=== PATIENT | male | born 1950 | race Caucasian/White ===

== ENCOUNTER 2017-11-03 23:09 | Inpatient (IN) | payer OTHER, MEDICARE ==
[2017-11-04] MEDS: KETOROLAC 15 MG INJ IV (02:19)
[2017-11-04] MEDS: ONDANSETRON 4 MG INJ IV (02:19)
[2017-11-04] MEDS: FAMOTIDINE 20 MG TAB PO (02:19)
[2017-11-04] MEDS: LIDOCAINE/MYLANTA 40 ML BTL PO (02:19)
[2017-11-04] MEDS: BELLADONNA/PHENOBARBITAL TAB PO (02:20)
[2017-11-04] MEDS: SOD CHLORIDE 0.9% 1,000 ML IV ×4 (02:20→18:48)
[2017-11-04 02:30] LABS: ADD MAN DIFF? NO
[2017-11-04 02:34] LABS: BASOPHIL # 0.1 10^3/ul (0.0-0.1); BASOPHILS % 0.3 % (0.0-2.0); HEMOGLOBIN 13.9 g/dl (14.0-18.0); LYMPHOCYTES # 0.7 10^3/ul (0.8-2.9); LYMPHOCYTES % 3.7 % (15.0-51.0); MEAN CORPUSCULAR HEMOGLOBIN 30.8 pg (29.0-33.0); MEAN CORPUSCULAR HGB CONC 34.8 g/dl (32.0-37.0); MEAN CORPUSCULAR VOLUME 88.7 fl (82.0-101.0); MEAN PLATELET VOLUME 10.9 fl (7.4-10.4); MONOCYTE # 0.6 10^3/ul (0.3-0.9); MONOCYTES % 3.4 % (0.0-11.0); NEUTROPHIL # 16.7 10^3/ul (1.6-7.5); NEUTROPHILS % 91.9 % (39.0-77.0); PLATELET COUNT 292 10^3/UL (140-415); RED BLOOD COUNT 4.51 10^6/ul (4.70-6.10); RED CELL DISTRIBUTION WIDTH 13.4 % (11.5-14.5)
[2017-11-04 02:34] LABS: WHITE BLOOD COUNT 18.2 10^3/ul (4.8-10.8)
[2017-11-04 02:52] LABS: ALANINE AMINOTRANSFERASE 38 IU/L (13-69); ALBUMIN 4.7 g/dl (3.3-4.9); ALBUMIN/GLOBULIN RATIO 1.46; ALKALINE PHOSPHATASE 105 IU/L (42-121); ANION GAP 20 (8-16); ASPARTATE AMINO TRANSFERASE 21 IU/L (15-46); BILIRUBIN,INDIRECT 0.1 mg/dl (0-1.1); BILIRUBIN,TOTAL 0.1 mg/dl (0.2-1.3); BLOOD UREA NITROGEN 20 mg/dl (7-20); CALCIUM 9.6 mg/dl (8.4-10.2); CARBON DIOXIDE 27 mmol/L (21-31); CHLORIDE 100 mmol/L (97-110); CREATININE 1.25 mg/dl (0.61-1.24); GLUCOSE 193 mg/dl (70-220); LIPASE 71 U/L (23-300); POTASSIUM 3.8 mmol/L (3.5-5.1); SODIUM 143 mmol/L (135-144); TOTAL PROTEIN 7.9 g/dl (6.1-8.1)
[2017-11-04 03:02] LABS: INR 0.93; PROTIME 12.5 Sec (11.9-14.9)
[2017-11-04 03:04] LABS: TROPONIN-I < 0.012 ng/ml (0.00-0.12)
[2017-11-04] MEDS: PIPER-TAZO 3.375 GM IV (PMX) 100 ML IVPB ×3 (04:27→18:48)
[2017-11-04] MEDS ORDERED: ACETAMINOPHEN 325 MG TAB ×2 (07:09→18:49)
[2017-11-04] MEDS: ACETAMINOPHEN 325 MG TAB PO ×2 (07:39→09:57)
[2017-11-04] MEDS ORDERED: MAGNESIUM HYDROXIDE 30ML CUP PO (09:00)
[2017-11-04] MEDS ORDERED: BISACODYL 10 MG SUPP PR (09:00)
[2017-11-04] MEDS ORDERED: DOCUSATE SODIUM 100 MG CAP PO (09:00)
[2017-11-04] MEDS ORDERED: ONDANSETRON 4 MG INJ IV (09:00)
[2017-11-04] MEDS: D5W-0.45 NACL + KCL 20 MEQ 1,000 ML IV (09:43)
[2017-11-04] MEDS ORDERED: GLUCAGON 1 MG INJ IM (11:30)
[2017-11-04] MEDS ORDERED: GLUCOSE GEL 15 GRAM TUBE PO ×2 (11:30)
[2017-11-04] MEDS ORDERED: DEXTROSE 50% 50 ML SYRINGE IV ×2 (11:30)
[2017-11-04] MEDS ORDERED: GLUCOSE GEL 15 GRAM TUBE BUCCAL (11:30)
[2017-11-04] MEDS: INSULIN ASPART [NOVOLOG] 3 ML PEN SC ×4 (13:09→21:00)
[2017-11-04 13:44] LABS: LACTIC ACID 3.5 mmol/L (0.5-2.0)
[2017-11-04] MEDS: morphine 2 MG INJ IV (17:54)
[2017-11-04] MEDS ORDERED: HYDROmorphONE 1 MG/ML SYG IV (18:00)
[2017-11-04] MEDS ORDERED: PIPER-TAZO 3.375 GM IV (PMX) 50 ML IVPB (18:00)
[2017-11-04] MEDS ORDERED: SOD CHLORIDE 0.9% IV (18:00)
[2017-11-04] MEDS ORDERED: SOD CHLORIDE 0.9% 500 ML IV (18:02)
[2017-11-04] MEDS ORDERED: ALBUTEROL/IPRATROPIUM (NEB) 3 ML AMP HHN (18:30)
[2017-11-04] MEDS ORDERED: POTASSIUM CHLORIDE 50 ML IVPB (18:30)
[2017-11-04] MEDS ORDERED: ZOLPIDEM 5 MG TAB PO (18:30)
[2017-11-04] MEDS ORDERED: ACETAMINOPHEN 325 MG TAB PO (19:00)
[2017-11-04 19:52] LABS: LACTIC ACID 1.9 mmol/L (0.5-2.0)
[2017-11-04] MEDS: metroNIDAZOLE 500 MG/NS (PMX) 100 ML IVPB (20:31)
[2017-11-04] MEDS ORDERED: LORAZEPAM 2 MG INJ IV (21:00)
[2017-11-04] MEDS ORDERED: LOSARTAN 50 MG TAB PO (21:00)
[2017-11-04] MEDS ORDERED: METOPROLOL 100 MG TAB PO (21:00)
[2017-11-04] MEDS: NORTRIPTYLINE 25 MG CAP PO (21:12)
[2017-11-04] MEDS: ATORVASTATIN 20 MG TAB PO (21:12)
[2017-11-05] MEDS: PIPER-TAZO 3.375 GM IV (PMX) 100 ML IVPB ×3 (00:15→11:26)
[2017-11-05] MEDS: metroNIDAZOLE 500 MG/NS (PMX) 100 ML IVPB ×4 (05:01→22:46)
[2017-11-05 05:58] LABS: ADD MAN DIFF? NO
[2017-11-05 06:00] LABS: ABNORMAL IP MESSAGE 1; BASOPHIL # 0.1 10^3/ul (0.0-0.1); BASOPHILS % 0.3 % (0.0-2.0); HEMATOCRIT 38.6 % (42.0-52.0); HEMOGLOBIN 13.2 g/dl (14.0-18.0); LYMPHOCYTES # 0.8 10^3/ul (0.8-2.9); LYMPHOCYTES % 3.5 % (15.0-51.0); MEAN CORPUSCULAR HEMOGLOBIN 30.7 pg (29.0-33.0); MEAN CORPUSCULAR HGB CONC 34.2 g/dl (32.0-37.0); MEAN CORPUSCULAR VOLUME 89.8 fl (82.0-101.0); MEAN PLATELET VOLUME 10.9 fl (7.4-10.4); MONOCYTE # 0.6 10^3/ul (0.3-0.9); MONOCYTES % 2.8 % (0.0-11.0); PLATELET COUNT 191 10^3/UL (140-415); POSITIVE DIFF @See below; RED CELL DISTRIBUTION WIDTH 14.1 % (11.5-14.5)
[2017-11-05 06:00] LABS: WHITE BLOOD COUNT 22.7 10^3/ul (4.8-10.8)
[2017-11-05] MEDS: PANTOPRAZOLE 40 MG INJ IV (06:12)
[2017-11-05 06:17] LABS: NEUTROPHILS % 92.4 % (39.0-77.0)
[2017-11-05 06:35] LABS: ALANINE AMINOTRANSFERASE 54 IU/L (13-69); ALBUMIN 3.5 g/dl (3.3-4.9); ALBUMIN/GLOBULIN RATIO 1.12; ALKALINE PHOSPHATASE 83 IU/L (42-121); ANION GAP 15 (8-16); ASPARTATE AMINO TRANSFERASE 33 IU/L (15-46); BILIRUBIN,INDIRECT 0.8 mg/dl (0-1.1); BILIRUBIN,TOTAL 0.8 mg/dl (0.2-1.3); BLOOD UREA NITROGEN 10 mg/dl (7-20); CALCIUM 8.5 mg/dl (8.4-10.2); CARBON DIOXIDE 24 mmol/L (21-31); CHLORIDE 104 mmol/L (97-110); CHOL/HDL RATIO 1.4 RATIO; CHOLESTEROL 68 mg/dl (100-200); CREATININE 0.95 mg/dl (0.61-1.24); GLUCOSE 109 mg/dl (70-220); HDL CHOLESTEROL 46 mg/dl (31-75); LDL CHOLESTEROL,CALCULATED 7 mg/dl; MAGNESIUM 1.2 mg/dl (1.7-2.5); POTASSIUM 3.4 mmol/L (3.5-5.1); SODIUM 140 mmol/L (135-144); TOTAL PROTEIN 6.6 g/dl (6.1-8.1); TRIGLYCERIDES 74 mg/dl (0-149)
[2017-11-05 06:46] LABS: TROPONIN-I 0.025 ng/ml (0.00-0.12)
[2017-11-05 07:08] LABS: HEMOGLOBIN A1C 5.8 % (0-5.9)
[2017-11-05] MEDS: INSULIN ASPART [NOVOLOG] 3 ML PEN SC ×4 (08:00→21:00)
[2017-11-05] MEDS: FINASTERIDE 5 MG TAB PO (08:50)
[2017-11-05] MEDS ORDERED: NIFEdipine (XL) 60 MG TAB PO (09:00)
[2017-11-05] MEDS ORDERED: AMLODIPINE 5 MG TAB PO (09:00)
[2017-11-05] MEDS: NS + KCL 20 MEQ 1,000 ML IV (12:45)
[2017-11-05] MEDS: MEROPENEM 1 GM/50ML(PMX) 50 ML IVPB ×2 (13:49→23:05)
[2017-11-05] MEDS ORDERED: MEROPENEM 2 GM in SOD CHLORIDE 0.9% 100 ML IVPB (14:00)
[2017-11-05] MEDS: HYDROmorphONE 1 MG/ML SYG IV (17:26)
[2017-11-05] MEDS: BUPIVACAINE 0.25% (MPF) 30 ML INJ (18:16)
[2017-11-05] MEDS ORDERED: PIPER-TAZO 3.375 GM IV (PMX) 100 ML (18:29)
[2017-11-05] MEDS ORDERED: DEXAMETHASONE 4 MG/ML 1 ML INJ (18:44)
[2017-11-05] MEDS ORDERED: GLYCOPYRROLATE 0.4 MG INJ (18:44)
[2017-11-05] MEDS ORDERED: CEFAZOLIN 1 GM INJ (18:44)
[2017-11-05] MEDS ORDERED: ROCURONIUM 50 MG INJ (18:44)
[2017-11-05] MEDS ORDERED: PROPOFOL 20 ML (18:44)
[2017-11-05] MEDS ORDERED: MIDAZOLAM 1 MG/ML 2 ML INJ (18:44)
[2017-11-05] MEDS ORDERED: FENTAnyl 50 MCG/ML VIAL (18:44)
[2017-11-05] MEDS ORDERED: ONDANSETRON 4 MG INJ (18:44)
[2017-11-05] MEDS ORDERED: NEOSTIGMINE 3 MG/3 ML SYRINGE (18:44)
[2017-11-05] MEDS ORDERED: ALBUTEROL 0.083% (NEB) 2.5 MG/3 ML AMP HHN (19:30)
[2017-11-05] MEDS ORDERED: IPRATROPIUM (NEB) 0.5 MG/2.5 ML AMP HHN (19:30)
[2017-11-05] MEDS ORDERED: TRIMETHOBENZAMIDE 100 MG/ML VIAL IM (19:30)
[2017-11-05] MEDS ORDERED: MIDAZOLAM 1 MG/ML 2 ML INJ IV (19:30)
[2017-11-05] MEDS ORDERED: DIPHENHYDRAMINE 50 MG INJ IV (19:30)
[2017-11-05] MEDS ORDERED: hydrALAzine 20 MG INJ IV (19:30)
[2017-11-05] MEDS ORDERED: MEPERIDINE 25 MG INJ IV (19:30)
[2017-11-05] MEDS ORDERED: FENTAnyl 50 MCG/ML VIAL IV ×3 (19:30)
[2017-11-05] MEDS ORDERED: LABETALOL HCL 20MG INJ IV (19:30)
[2017-11-05] MEDS ORDERED: ONDANSETRON 4 MG INJ IV ×2 (19:30→21:00)
[2017-11-05] MEDS ORDERED: HYDROmorphONE (0.2 MG/ML) 10ML SYG IV ×3 (19:30)
[2017-11-05] MEDS ORDERED: EPHEDrine SULFATE 50 MG/5 ML SYG IV (19:30)
[2017-11-05] MEDS ORDERED: OXYCODONE/ACETAMINOPHEN (5/325) TAB PO ×2 (19:30)
[2017-11-05] MEDS: NORTRIPTYLINE 25 MG CAP PO (21:00)
[2017-11-05] MEDS ORDERED: HYDROCODONE/APAP (5/325) TAB PO (21:00)
[2017-11-05] MEDS ORDERED: morphine 2 MG INJ IV (21:00)
[2017-11-05] MEDS ORDERED: ACETAMINOPHEN 325 MG TAB PO (21:00)
[2017-11-05] MEDS ORDERED: HYDROCODONE/APAP (10/325) TAB PO (21:00)
[2017-11-05] MEDS: ATORVASTATIN 20 MG TAB PO (22:45)
[2017-11-05] MEDS: DOCUSATE SODIUM 100 MG CAP PO (22:45)
[2017-11-05] MEDS: METOPROLOL 25 MG TAB PO (22:46)
[2017-11-06] MEDS: NS + KCL 20 MEQ 1,000 ML IV ×4 (00:36→12:20)
[2017-11-06] MEDS: PANTOPRAZOLE 40 MG INJ IV (05:08)
[2017-11-06] MEDS: MEROPENEM 1 GM/50ML(PMX) 50 ML IVPB ×3 (05:08→22:40)
[2017-11-06] MEDS: metroNIDAZOLE 500 MG/NS (PMX) 100 ML IVPB ×3 (05:08→21:33)
[2017-11-06] MEDS: INSULIN ASPART [NOVOLOG] 3 ML PEN SC ×4 (08:00→21:00)
[2017-11-06] MEDS: DOCUSATE SODIUM 100 MG CAP PO ×2 (08:45→21:32)
[2017-11-06] MEDS: METOPROLOL 25 MG TAB PO ×2 (08:46→21:33)
[2017-11-06] MEDS: FINASTERIDE 5 MG TAB PO (08:52)
[2017-11-06 08:54] LABS: WHITE BLOOD COUNT 17.5 10^3/ul (4.8-10.8)
[2017-11-06 08:54] LABS: HEMATOCRIT 38.1 % (42.0-52.0); HEMOGLOBIN 12.8 g/dl (14.0-18.0); MEAN CORPUSCULAR HEMOGLOBIN 30.4 pg (29.0-33.0); MEAN CORPUSCULAR HGB CONC 33.6 g/dl (32.0-37.0); MEAN CORPUSCULAR VOLUME 90.5 fl (82.0-101.0); MEAN PLATELET VOLUME 11.3 fl (7.4-10.4); PLATELET COUNT 163 10^3/UL (140-415); POSITIVE DIFF @See below; RED BLOOD COUNT 4.21 10^6/ul (4.70-6.10); RED CELL DISTRIBUTION WIDTH 13.9 % (11.5-14.5)
[2017-11-06 09:07] LABS: ADD MAN DIFF? YES; MAGNESIUM 1.7 mg/dl (1.7-2.5)
[2017-11-06 09:07] LABS: PHOSPHORUS 2.1 mg/dl (2.5-4.9)
[2017-11-06 09:19] LABS: ALANINE AMINOTRANSFERASE 70 IU/L (13-69); ALBUMIN 3.2 g/dl (3.3-4.9); ALKALINE PHOSPHATASE 91 IU/L (42-121); ANION GAP 11 (8-16); ASPARTATE AMINO TRANSFERASE 57 IU/L (15-46); BILIRUBIN,INDIRECT 0.3 mg/dl (0-1.1); BILIRUBIN,TOTAL 0.3 mg/dl (0.2-1.3); BLOOD UREA NITROGEN 12 mg/dl (7-20); CALCIUM 8.5 mg/dl (8.4-10.2); CARBON DIOXIDE 28 mmol/L (21-31); CHLORIDE 104 mmol/L (97-110); CREATININE 0.88 mg/dl (0.61-1.24); GLUCOSE 109 mg/dl (70-220); POTASSIUM 4.2 mmol/L (3.5-5.1); SODIUM 139 mmol/L (135-144); TOTAL PROTEIN 6.4 g/dl (6.1-8.1)
[2017-11-06 11:04] LABS: ANISOCYTOSIS 1+ (0-0); BAND NEUTROPHILS % (M) 23 % (0-4); BURR CELLS 2+ (0-0); EOSINOPHILS % (M) 1 % (0-7); GIANT THROMBO% (M) 1 % (0-0); LYMPHOCYTES #M 0.3 10^3/ul (0.8-2.9); LYMPHOCYTES % (M) 2 % (15-51); METAMYELOCYTES #M 0.1 10^3/ul (0.0-0.0); METAMYELOCYTES %M 1 % (0-0); MONOCYTE #M 0.1 10^3/ul (0.3-0.9); MONOCYTES % (M) 1 % (0-11); PLATELET ESTIMATE NORMAL; POIKILOCYTOSIS 2+ (0-0); POLYCHROMASIA 1+ (0-0); SEGMENTED NEUTROPHILS (M) % 70 % (39-77)
[2017-11-06] MEDS: ATORVASTATIN 20 MG TAB PO (21:32)
[2017-11-06] MEDS: NORTRIPTYLINE 25 MG CAP PO (21:32)
[2017-11-07] MEDS: metroNIDAZOLE 500 MG/NS (PMX) 100 ML IVPB (05:26)
[2017-11-07] MEDS: PANTOPRAZOLE 40 MG INJ IV (05:26)
[2017-11-07] MEDS: MEROPENEM 1 GM/50ML(PMX) 50 ML IVPB (06:57)
[2017-11-07] MEDS: INSULIN ASPART [NOVOLOG] 3 ML PEN SC ×4 (08:00→20:48)
[2017-11-07] MEDS: DOCUSATE SODIUM 100 MG CAP PO ×2 (08:35→20:44)
[2017-11-07] MEDS: FINASTERIDE 5 MG TAB PO (08:35)
[2017-11-07] MEDS: METOPROLOL 25 MG TAB PO ×3 (08:35→20:45)
[2017-11-07 09:07] LABS: ADD MAN DIFF? NO
[2017-11-07 09:15] LABS: BASOPHILS % 0.4 % (0.0-2.0); EOSINOPHILS # 0.1 10^3/ul (0.0-0.5); EOSINOPHILS % 1.3 % (0.0-7.0); HEMATOCRIT 37.9 % (42.0-52.0); HEMOGLOBIN 13.2 g/dl (14.0-18.0); LYMPHOCYTES # 1.2 10^3/ul (0.8-2.9); LYMPHOCYTES % 10.5 % (15.0-51.0); MEAN CORPUSCULAR HEMOGLOBIN 30.6 pg (29.0-33.0); MEAN CORPUSCULAR HGB CONC 34.8 g/dl (32.0-37.0); MEAN CORPUSCULAR VOLUME 87.9 fl (82.0-101.0); MEAN PLATELET VOLUME 11.3 fl (7.4-10.4); MONOCYTE # 0.9 10^3/ul (0.3-0.9); MONOCYTES % 8.6 % (0.0-11.0); NEUTROPHIL # 8.6 10^3/ul (1.6-7.5); NEUTROPHILS % 78.7 % (39.0-77.0); PLATELET COUNT 177 10^3/UL (140-415); RED BLOOD COUNT 4.31 10^6/ul (4.70-6.10); RED CELL DISTRIBUTION WIDTH 13.5 % (11.5-14.5)
[2017-11-07 09:45] LABS: ALANINE AMINOTRANSFERASE 59 IU/L (13-69); ALBUMIN 3.2 g/dl (3.3-4.9); ALKALINE PHOSPHATASE 80 IU/L (42-121); ANION GAP 12 (8-16); ASPARTATE AMINO TRANSFERASE 33 IU/L (15-46); BILIRUBIN,INDIRECT 0.4 mg/dl (0-1.1); BILIRUBIN,TOTAL 0.4 mg/dl (0.2-1.3); BLOOD UREA NITROGEN 12 mg/dl (7-20); CALCIUM 8.1 mg/dl (8.4-10.2); CARBON DIOXIDE 29 mmol/L (21-31); CHLORIDE 103 mmol/L (97-110); CREATININE 0.83 mg/dl (0.61-1.24); GLUCOSE 111 mg/dl (70-220); MAGNESIUM 1.8 mg/dl (1.7-2.5); PHOSPHORUS 1.8 mg/dl (2.5-4.9); POTASSIUM 3.5 mmol/L (3.5-5.1); SODIUM 140 mmol/L (135-144); TOTAL PROTEIN 6.4 g/dl (6.1-8.1)
[2017-11-07] MEDS: LOSARTAN 50 MG TAB PO ×2 (10:27→20:45)
[2017-11-07] MEDS: NIFEdipine (XL) 60 MG TAB PO (10:27)
[2017-11-07] MEDS ORDERED: LEVOFLOXACIN 750 MG TABLET PO (12:00)
[2017-11-07] MEDS: LACTOBACILLUS RHAMNOSUS CAP PO ×2 (12:05→20:44)
[2017-11-07] MEDS: POTASSIUM PHOSPHATE 30 MM in DEXTROSE 5% 250 ML IVPB (12:39)
[2017-11-07] MEDS: AMOXICILLIN/CLAV 875 MG TAB PO ×2 (12:39→20:44)
[2017-11-07] MEDS: AMLODIPINE 10 MG TAB PO (12:56)
[2017-11-07] MEDS ORDERED: hydrALAzine 20 MG INJ IV (13:00)
[2017-11-07] MEDS: ATORVASTATIN 20 MG TAB PO (20:44)
[2017-11-07] MEDS: NORTRIPTYLINE 25 MG CAP PO (20:48)
[2017-11-07] MEDS: NACL 0.9% 3 ML SYG IV (23:30)
[2017-11-08] MEDS: PANTOPRAZOLE 40 MG INJ IV (05:15)
[2017-11-08 05:28] LABS: ADD MAN DIFF? NO
[2017-11-08 05:30] LABS: BASOPHILS % 0.3 % (0.0-2.0); EOSINOPHILS # 0.2 10^3/ul (0.0-0.5); EOSINOPHILS % 1.8 % (0.0-7.0); HEMATOCRIT 37.1 % (42.0-52.0); HEMOGLOBIN 12.8 g/dl (14.0-18.0); LYMPHOCYTES # 1.6 10^3/ul (0.8-2.9); LYMPHOCYTES % 16.8 % (15.0-51.0); MEAN CORPUSCULAR HEMOGLOBIN 29.9 pg (29.0-33.0); MEAN CORPUSCULAR HGB CONC 34.5 g/dl (32.0-37.0); MEAN CORPUSCULAR VOLUME 86.7 fl (82.0-101.0); MONOCYTE # 1.1 10^3/ul (0.3-0.9); MONOCYTES % 11.7 % (0.0-11.0); NEUTROPHIL # 6.5 10^3/ul (1.6-7.5); NEUTROPHILS % 68.6 % (39.0-77.0); PLATELET COUNT 203 10^3/UL (140-415); RED BLOOD COUNT 4.28 10^6/ul (4.70-6.10); RED CELL DISTRIBUTION WIDTH 13.7 % (11.5-14.5)
[2017-11-08 05:30] LABS: WHITE BLOOD COUNT 9.5 10^3/ul (4.8-10.8)
[2017-11-08 05:48] LABS: PHOSPHORUS 2.7 mg/dl (2.5-4.9)
[2017-11-08 05:48] LABS: MAGNESIUM 1.8 mg/dl (1.7-2.5)
[2017-11-08 05:57] LABS: ALANINE AMINOTRANSFERASE 50 IU/L (13-69); ALBUMIN 3.4 g/dl (3.3-4.9); ALBUMIN/GLOBULIN RATIO 1.09; ALKALINE PHOSPHATASE 85 IU/L (42-121); ANION GAP 12 (8-16); ASPARTATE AMINO TRANSFERASE 23 IU/L (15-46); BILIRUBIN,INDIRECT 0.4 mg/dl (0-1.1); BILIRUBIN,TOTAL 0.4 mg/dl (0.2-1.3); BLOOD UREA NITROGEN 15 mg/dl (7-20); CALCIUM 8.1 mg/dl (8.4-10.2); CARBON DIOXIDE 27 mmol/L (21-31); CHLORIDE 103 mmol/L (97-110); CREATININE 0.86 mg/dl (0.61-1.24); GLUCOSE 125 mg/dl (70-220); POTASSIUM 3.1 mmol/L (3.5-5.1); SODIUM 139 mmol/L (135-144); TOTAL PROTEIN 6.5 g/dl (6.1-8.1)
[2017-11-08] MEDS: INSULIN ASPART [NOVOLOG] 3 ML PEN SC ×2 (07:44→12:15)
[2017-11-08] MEDS: AMOXICILLIN/CLAV 875 MG TAB PO (08:14)
[2017-11-08] MEDS: LACTOBACILLUS RHAMNOSUS CAP PO (08:15)
[2017-11-08] MEDS: LOSARTAN 50 MG TAB PO (08:15)
[2017-11-08] MEDS: NIFEdipine (XL) 60 MG TAB PO (08:15)
[2017-11-08] MEDS: DOCUSATE SODIUM 100 MG CAP PO (08:15)
[2017-11-08] MEDS: FINASTERIDE 5 MG TAB PO (08:15)
[2017-11-08] MEDS: METOPROLOL 25 MG TAB PO (08:16)
[2017-11-08] MEDS: AMLODIPINE 10 MG TAB PO (08:16)
[2017-11-08] MEDS: MAGNESIUM SULFATE 2 GM/50 ML 50 ML IVPB (11:45)
[2017-11-08] MEDS: POTASSIUM CHLORIDE (SR) 20 MEQ TAB PO (11:46)
== END 2017-11-08 15:05 | disposition home health service (06) | DRG 854 ==
LOC: E/R 23:09 → MS1 11-04 04:30 → MS2 11-07 23:20 → MS4 11-05 18:25
PROC: 0FT44ZZ Resection of Gallbladder, Percutaneous Endoscopic Approach (ICD-10-PCS; principal; 2017-11-05 18:30)
DX: A41.9 Sepsis, unspecified organism (principal); K80.12 Calculus of gallbladder with acute and chronic cholecystitis without obstruction; I42.9 Cardiomyopathy, unspecified; I10 Essential (primary) hypertension; E78.5 Hyperlipidemia, unspecified; E11.9 Type 2 diabetes mellitus without complications; Z79.4 Long term (current) use of insulin; Z86.73 Personal history of transient ischemic attack (TIA), and cerebral infarction without residual deficits; Z79.02 Long term (current) use of antithrombotics/antiplatelets
CPT/HCPCS: 36415; 71045; 74176; 76705; 80053; 80061; 82962; 83036; 83605; 83690; 83735; 84100; 84484; 85025; 85610; 87040; 87070; 88304; 96365; 96366; 96368; 96375; 96376; 97162; 99285-25

== ENCOUNTER 2018-01-05 10:31 | Emergency (ER) | payer OTHER ==
[2018-01-05] MEDS: LABETALOL HCL 20MG INJ IV ×2 (12:30→13:00)
[2018-01-05 12:46] LABS: ADD MAN DIFF? NO
[2018-01-05 13:00] LABS: BASOPHIL # 0.1 10^3/ul (0.0-0.1); BASOPHILS % 0.8 % (0.0-2.0); EOSINOPHILS # 0.1 10^3/ul (0.0-0.5); EOSINOPHILS % 1.4 % (0.0-7.0); HEMATOCRIT 42.5 % (42.0-52.0); HEMOGLOBIN 14.6 g/dl (14.0-18.0); LYMPHOCYTES # 1.7 10^3/ul (0.8-2.9); LYMPHOCYTES % 23.6 % (15.0-51.0); MEAN CORPUSCULAR HEMOGLOBIN 30.6 pg (29.0-33.0); MEAN CORPUSCULAR HGB CONC 34.4 g/dl (32.0-37.0); MEAN CORPUSCULAR VOLUME 89.1 fl (82.0-101.0); MEAN PLATELET VOLUME 11.1 fl (7.4-10.4); MONOCYTE # 0.7 10^3/ul (0.3-0.9); NEUTROPHIL # 4.6 10^3/ul (1.6-7.5); PLATELET COUNT 260 10^3/UL (140-415); RED BLOOD COUNT 4.77 10^6/ul (4.70-6.10); RED CELL DISTRIBUTION WIDTH 13.5 % (11.5-14.5)
[2018-01-05 13:00] LABS: WHITE BLOOD COUNT 7.2 10^3/ul (4.8-10.8)
[2018-01-05] MEDS ORDERED: LABETALOL HCL 20MG INJ IV (13:00)
[2018-01-05 13:08] LABS: ANION GAP 19 (8-16); BLOOD UREA NITROGEN 14 mg/dl (7-20); CALCIUM 9.4 mg/dl (8.4-10.2); CARBON DIOXIDE 27 mmol/L (21-31); CHLORIDE 106 mmol/L (97-110); CREATININE 0.92 mg/dl (0.61-1.24); GLUCOSE 114 mg/dl (70-220); POTASSIUM 3.7 mmol/L (3.5-5.1); SODIUM 148 mmol/L (135-144)
[2018-01-05 13:25] LABS: TROPONIN-I < 0.012 ng/ml (0.00-0.12)
[2018-01-05] MEDS: NICARDipine HCL 30 MG CAPSULE PO (13:57)
[2018-01-05] MEDS: ACETAMINOPHEN 325 MG TAB PO (14:39)
== END 2018-01-05 15:58 | disposition home or self-care (01) ==
LOC: E/R 10:31
DX: I16.1 Hypertensive emergency (principal); I10 Essential (primary) hypertension; I25.2 Old myocardial infarction; Z79.84 Long term (current) use of oral hypoglycemic drugs
CPT/HCPCS: 36415; 70450; 80048; 84484; 85025; 99285-25